=== PATIENT | female | born 2000 | race Caucasian/White ===

== ENCOUNTER 2019-04-10 01:13 | Emergency (ER) | payer OTHER ==
[2019-04-10] MEDS ORDERED: NS 0.9% 1000 ML** 1,000 ML IV ONE (01:24)
[2019-04-10] MEDS ORDERED: Ondansetron INJ* 2 MG/ML VIAL IV ONE (01:25)
[2019-04-10] MEDS ORDERED: Pantoprazole IV* 40 MG IV ONE (01:25)
[2019-04-10 01:44] LABS: Hematocrit 37 % (35-47); Hemoglobin 12.7 g/dL (12.0-16.0); Mean Corpuscular HGB Conc 34 g/dL (31-36); Mean Corpuscular Hemoglobin 30 pg (27-31); Mean Corpuscular Volume 86 fL (80-97); Platelet Count 256 10^3/uL (150-450); Red Blood Count 4.31 10^6 /uL (3.70-4.87); Red Cell Distribution Width 14 % (10-15); White Blood Count 8.2 10^3/uL (3.5-10.8)
[2019-04-10 02:02] LABS: ALT 11 U/L (7-52); AST 21 U/L (13-39); Acetaminophen < 15 mcg/mL; Albumin 4.1 g/dL (3.2-5.2); Albumin/Globulin Ratio 1.4 (1-3); Alcohol 337 mg/dL (<10); Alkaline Phosphatase 31 U/L (34-104); Anion Gap 7 mmol/L (2-11); BUN/Creatinine Ratio 14.1 (8-20); Blood Urea Nitrogen 10 mg/dL (6-24); CO2 Carbon Dioxide 23 mmol/L (22-32); Calcium 8.7 mg/dL (8.6-10.3); Chloride 105 mmol/L (101-111); EGFR African American 125.7 (>60); EGFR Non-African American 103.9 (>60); Glucose 98 mg/dL (70-100); Potassium 3.3 mmol/L (3.5-5.0); Salicylate < 2.50 mg/dL (<30); Sodium 135 mmol/L (135-145); Total Protein 7.1 g/dL (6.4-8.9)
[2019-04-10 02:09] LABS: HCG Pregnancy < 0.60 mIU/mL
[2019-04-10 02:10] LABS: ABS Basophils 0.1 10^3/ul (0-0.2); ABS Eosinophils 0.3 10^3/ul (0-0.6); ABS Lymphocytes 4.6 10^3/ul (1.0-4.8); ABS Monocytes 0.7 10^3/ul (0-0.8); ABS Neutrophils 2.6 10^3/ul (1.5-7.7); Eosinophil % 3.3 %; Lymphocyte % 55.6 %
--- NOTE | 2019-04-10 02:48 | ED ---
Substance Abuse/Use - HPI Summary HPI Summary: Level 5 Caveat Nonverbal This patient is a 19 year old F presenting to [facility] by EMS with a chief complaint of alcohol intoxication since prior to arrival - History Of Current Complaint Chief Complaint: EDSubstanceAbuse Stated Complaint: 2208 Time Seen by Provider: 04/10/19 01:23 Hx Obtained From: EMS Hx From Patient Unobtainable Due To: Other - Level 5 Caveat Nonverbal Ingestion History: Type/Name Of Drug - EtOH Timing Of Abuse: Binge Use - Allergies/Home Medications Allergies/Adverse Reactions: Allergies Allergy/AdvReac Type Severity Reaction Status Date / Time Unable to Assess Allergy Verified 04/10/19 02:14 Home Medications: Home Medications Unobtainable 04/10/19 [History Confirmed 04/10/19] PMH/Surg Hx/FS Hx/Imm Hx Previously Healthy: No - Level 5 Caveat Nonverbal - Surgical History Surgical History: Unable to Obtain/Confirm - Level 5 Caveat Nonverbal - Immunization History Immunizations Up to Date: Unable to Obtain/Confirm Infectious Disease History: Unable to Obtain/Confirm Infectious Disease History: Denies: Traveled Outside the [place] in Last 30 Days - etoh - Family History Known Family History: Positive: Unknown - Level 5 Caveat Nonverbal - Social History Occupation: Student Alcohol Use: currently etoh Substance Use Type: Reports: Other Substance Use Comment - Amount & Last Used: unknown Smoking Status (MU): Unknown if Ever Smoked - Additional Comments History Additional Comments: Level 5 Caveat Nonverbal Review of Systems All Other Systems Reviewed And Are Negative: No - Comments Additional Review of Systems Comments: Level 5 Caveat Nonverbal Physical Exam - Summary Physical Exam Summary: Level 5 Caveat Nonverbal General: Well-developed, Well-nourished female. Lethargic. No acute distress. HEENT: Normocephalic, Atraumatic. Eyes: Conjuctiva normal, PERRL. Oropharynx: Clear, dry mucous membranes, (-) exudates. Neck: Soft, FROM, (-) lymphadenopathy, (-) thyromegaly, (-) JVD. Cardiovascular: Normal sinus rhythm, (-) murmur. Lungs: Clear to auscultation bilaterally (-) wheezes, (-) rales, (-) rhonchi. Abdomen: Soft, non-tender, non-distended, (-) organomegaly, normal bowel sounds. Back: (-) CVA tenderness Extremities: No edema. Skin: Warm, dry, (-) rash. Neuro: Alert and oriented x3, moves all extremities equally. GCS 11. Psychiatric: unable to assess Triage Information Reviewed: Yes Vital Signs On Initial Exam: Initial Vitals Temp Pulse Resp BP Pulse Ox 97.3 F 74 16 113/78 97 04/10/19 01:18 04/10/19 01:18 04/10/19 01:18 04/10/19 01:18 04/10/19 01:18 Vital Signs Reviewed: Yes - Piper Coma Scale Best Eye Response: 3 - To Speech Best Motor Response: 3 - Flexion (Decorticate) Best Verbal Response: 5 - Oriented Coma Scale Total: 11 Procedures - Sedation Patient Received Moderate/Deep Sedation with Procedure: No Diagnostics - Vital Signs Vital Signs Temp Pulse Resp BP Pulse Ox 04/10/19 01:18 97.3 F 74 16 113/78 97 - Laboratory Lab Results: Lab Results 04/10/19 04/10/19 04/10/19 Range/Units 01:33 01:33 01:33 WBC 8.2 (3.5-10.8) 10^3/uL RBC 4.31 (3.70-4.87) 10^6 /uL Hgb 12.7 (12.0-16.0) g/dL Hct 37 (35-47) % MCV 86 (80-97) fL MCH 30 (27-31) pg MCHC 34 (31-36) g/dL RDW 14 (10-15) % Plt Count 256 (150-450) 10^3/uL MPV 8.0 (7.4-10.4) fL Neut % (Auto) 31.9 % Lymph % (Auto) 55.6 % [place] % (Auto) 8.5 % Eos % (Auto) 3.3 % Baso % (Auto) 0.7 % Absolute Neuts (auto) 2.6 (1.5-7.7) 10^3/ul Absolute Lymphs (auto) 4.6 (1.0-4.8) 10^3/ul Absolute Monos (auto) 0.7 (0-0.8) 10^3/ul Absolute Eos (auto) 0.3 (0-0.6) 10^3/ul Absolute Basos (auto) 0.1 (0-0.2) 10^3/ul Absolute Nucleated RBC 0.0 10^3/ul Nucleated RBC % 0.0 Sodium 135 (135-145) mmol/L Potassium 3.3 L (3.5-5.0) mmol/L Chloride 105 (101-111) mmol/L Carbon Dioxide 23 (22-32) mmol/L Anion Gap 7 (2-11) mmol/L BUN 10 (6-24) mg/dL Creatinine 0.71 (0.51-0.95) mg/dL Est GFR ( Amer) 125.7 (>60) Est GFR (Non-Af Amer) 103.9 (>60) BUN/Creatinine Ratio 14.1 (8-20) Glucose 98 (70-100) mg/dL Lactic Acid 2.2 H* (0.5-2.0) mmol/L Calcium 8.7 (8.6-10.3) mg/dL Total Bilirubin 0.20 (0.2-1.0) mg/dL AST 21 (13-39) U/L ALT 11 (7-52) U/L Alkaline Phosphatase 31 L (34-104) U/L Total Protein 7.1 (6.4-8.9) g/dL Albumin 4.1 (3.2-5.2) g/dL Globulin 3.0 (2-4) g/dL Albumin/Globulin Ratio 1.4 (1-3) Beta HCG, Quant < 0.60 mIU/mL Salicylates < 2.50 (<30) mg/dL Acetaminophen < 15 mcg/mL Serum Alcohol 337 H (<10) mg/dL Result Diagrams: 04/10/19 01:33 04/10/19 01:33 Lab Statement: Any lab studies that have been ordered have been reviewed, and results considered in the medical decision making process. Course/Dx - Course Course Of Treatment: 19-year-old female brought by ambulance for acute alcohol intoxication and vomiting. Patient is quite lethargic upon arrival. She does respond to pain. Does not follow commands or answer questions. Physical exam shows no signs of trauma. Blood alcohol 337. Patient slept soundly. signed out at change of shift awaiting sobriety and reevaluation. - Diagnoses Provider Diagnoses: Alcohol intoxication Discharge ED - Sign-Out/Discharge Documenting (check all that apply): Patient Departure, Sign-Out Patient Signing out patient TO: Ernst Fabian - pending sobriety Receiving patient FROM: Yoli Fox - Discharge Plan Condition: Stable Disposition: HOME Patient Education Materials: Alcohol Intoxication (ED) [facility] [Primary Care Provider] - Additional Instructions: You were seen in the emergency department for alcohol intoxication. Please don' t drink and drive. It was a pleasure taking care of you today. - Billing Disposition and Condition Condition: STABLE Disposition: Home - Attestation Statements Document Initiated by Marsha: Yes Documenting Scribe: Brenna Garza Provider For Whom Marsha is Documenting (Include Credential): Dr. Yoli Fox MD Scribe Attestation: Brenna Mccullough scribed for Dr. Yoli Fox MD on 04/11/19 at 0654. Scribe Documentation Reviewed: Yes Provider Attestation: The documentation as recorded by the lizibe, Brenna Garza accurately reflects the service I personally performed and the decisions made by me, Dr. Yoli Fox MD Status of Scribe Document: Viewed
--- NOTE | 2019-04-10 07:38 | ED ---
Progress - Progress Note Progress Note: Patient is a signout from Dr. Fox to Dr. Fabian at change of shifts at 0700 on 04/10/19, pending sobriety and discharge. 0922 - Patient is awake and has a safe ride home. She will be discharged. Course/Dx - Course Course Of Treatment: 19-year-old female brought by ambulance for acute alcohol intoxication and vomiting. Patient is quite lethargic upon arrival. She does respond to pain. Does not follow commands or answer questions. Physical exam shows no signs of trauma. Blood alcohol 337. Patient slept soundly. signed out at change of shift awaiting sobriety and reevaluation. - Diagnoses Provider Diagnoses: Alcohol intoxication Discharge ED - Sign-Out/Discharge Documenting (check all that apply): Patient Departure - discharge home, Receiving Sign-Out Receiving patient FROM: Yoli Fox - Signout from Dr. Fox at change of shifts at 0700 on 04/10/19. - Discharge Plan Condition: Stable Disposition: HOME Patient Education Materials: Alcohol Intoxication (ED) [facility]: [facility] [Primary Care Provider] - Additional Instructions: You were seen in the emergency department for alcohol intoxication. Please don' t drink and drive. It was a pleasure taking care of you today. - Billing Disposition and Condition Condition: STABLE Disposition: Home - Attestation Statements Document Initiated by Marsha: Yes Documenting Scribe: Bunny Proctor Provider For Whom Marsha is Documenting (Include Credential): Ernst Fabian MD Scribe Attestation: Bunny Mccullough, scribed for Ernst Fabian MD on 04/10/19 at 1054. Scribe Documentation Reviewed: Yes Provider Attestation: The documentation as recorded by the Bunny cristobal accurately reflects the service I personally performed and the decisions made by me, Ernst Fabian MD Status of Scribe Document: Viewed
[2019-04-10 09:54] VITALS: BP 118/75
== END 2019-04-10 10:49 | disposition home or self-care (01) ==
LOC: ED 01:13
DX: F10.929 Alcohol use, unspecified with intoxication, unspecified (principal); R11.10 Vomiting, unspecified
CPT/HCPCS: 36415; 80053; 80320; 80329; 83605; 84702; 85025; 99283; G0480; J2405